=== PATIENT | male | born 1990 | race African-American/Black ===

== ENCOUNTER 2019-08-26 03:11 | Emergency (ER) | payer OTHER ==
--- NOTE | 2019-08-26 07:53 | RAD ---
EXAM: XR Foot Lt 3 View STANDARD PROVIDED CLINICAL HISTORY: Pain FINDINGS: There is no evidence for fracture or other acute osseous abnormality. Alignment appears anatomic. Hyacinth nt spaces appear preserved. IMPRESSION: No evidence for an acute osseous abnormality. If there is persistent clinical concern, conservative m anagement and follow-up imaging advised.
== END 2019-08-26 03:24 | disposition home or self-care (01) ==
LOC: ERS 03:11
DX: S90.32XA Contusion of left foot, initial encounter (principal); W20.8XXA Other cause of strike by thrown, projected or falling object, initial encounter